=== PATIENT | male | born 1980 | race Caucasian/White ===

== ENCOUNTER 2022-12-29 06:53 | Emergency (ER) | payer OTHER, SELFPAY ==
[2022-12-29 06:56] VITALS: BP 116/70; PULSE 64; RESP 18; TEMP 37.2; O2SAT 100
--- NOTE | 2022-12-29 07:23 | NUR.NOTE ---
Nursing Note: Per nurse,cleaned laceration on left hand with sterile water. Patient had an approximate 1 1/2 laceration to the palm of his left hand.
--- NOTE | 2022-12-29 08:14 | ED.GENADUL_ITS ---
Discharge Plan Disposition Patient Disposition: Home Condition: Good Discharge Details Clinical Impression: Laceration of hand, left Primary Care Provider: None,None ED Provider: Bekah Mosley Home Meds and New Rx's Prescriptions: No Action No Known Home Meds Discharge Instructions Instructions: Laceration (ED) Additional Instructions: Stitches should be removed in 7 days; this can be done at your primary care office, urgent care, or here in the ED. Seek medical attention if your wound becomes hot, you have worsening pain, there is thick green or white discharge from the wound, you have weakness or numbness in your hand or fingers, or if you have any other concerns. Discharge Data Discharge Date/Time-TO BE ENTERED AT DEPARTURE: 12/29/22 08:43 Medical Decision Making Previously healthy 42yo male presenting with left hand laceration. Attempted to catch slipping metal sheet at ~0600 this morning. UTD on tetanus. Vital signs reassuring, shallow 3.5cm hemostatic laceration on palm of left hand on exam. No indication of neurovascular, muscle, or tendon involvement, no foreign bodies, appears clean and not grossly contaminated. Would not give prophylactic antibiotics. Thoroughly irrigated and repaired. Educated regarding s/s of infection. Discharged home; discharge instructions including return precautions were reviewed with patient who verablized understanding. Alll questions were answered and they are in full agreement with the plan. HPI General Mode of arrival: ambulatory . Date/Time Provider Initiated Documentation: 12/29/22 06:59 . Limitations to Documentation: no limitations . Information obtained by: patient . HPI Narrative: Previously healthy 42yo male presenting with left hand laceration. Was loading metal sheeting at around 0600 when it slipped, he grabbed it and cut his hand. Reports last tetanus was 1 year ago. No numbness, tingling, or weakness in his hand. Denies any other injuries. Was in his usual state of health this morning prior to this event. Related Data Home Medications Medication Instructions Recorded Confirmed Unknown [No Known Home Meds] 12/29/22 12/29/22 Allergies Allergy/AdvReac Type Severity Reaction Status Date / Time Penicillins Allergy Other (See Unverified 12/29/22 06:59 Comment) General Stated Complaint: Laceration KATERINA: 4 Review of Systems Narrative: see HPI PFSH All Active Problems (Updated 12/29/22 @ 08:18 by Bekah Mosley MD) Laceration of hand, left (Acute) Social History Smoking/Tobacco Use Status: Never Smoking risk assessment performed?: Yes Alcohol Intake: current Alcohol Intake frequency: a few times a week Drug use: Never Substance use type: does not use Housing: house Do you feel safe at home: Yes Do you feel safe in your relationship?: Yes Exam Narrative Exam Narrative: General: Alert, well appearing, well nourished, in no acute distress. Head: Normocephalic, atraumatic Neck: Trachea midline, Neck supple. Resp: No respiratory distress. Abd: Non-distended Neurologic: GCS 15. Moves all extremities freely against gravity Extremities: Left hand with 3.5cm shallow hemostatic laceration to medial palm below 4th & 5th digits. No sign of foreign body or deep structure involvement. Flexion, extension, abduction, and adduction intact at all digits with full strength. Sensation intact throughout including both ulnar and median distributions. Normally capillary refill. Course Vital Signs Vital signs: Vital Signs Temperature 37.2 C 12/29/22 06:56 Pulse 64 12/29/22 06:56 Respiratory Rate 18 12/29/22 06:56 Blood Pressure 116/70 12/29/22 06:56 Pulse Oximetry 100 12/29/22 06:56 Temperature 37.2 C 12/29/22 06:56 Temperature Source Temporal Artery Scan 12/29/22 06:56 Pulse 64 12/29/22 06:56 Respiratory Rate 18 12/29/22 06:56 Respiratory Effort Normal, Non-Labored 12/29/22 07:00 Blood Pressure 116/70 12/29/22 06:56 Blood Pressure Position Sitting 12/29/22 06:56 Pulse Oximetry 100 12/29/22 06:56 Oxygen Delivery Method Room Air 12/29/22 06:56 Oxygen Flow Rate 0 12/29/22 06:56 Procedures Laceration Laceration 1: Site: hand Side (If applicable): left Size (cm): 3.5 Description: linear Depth: simple, single layer Local Anesthetic: Lidocaine 2% Amount of anesthesia used (mL): 3 Pre-repair: wound explored, irrigated extensively and deep structures intact Skin layer closed with: nylon Size (cm): 3-0 Number of sutures: 5 Technique: simple, interrupted PAWSS Have you Been Recently Intoxicated or Drunk Within the Last 30 days?: No Have you Ever Experienced Previous Episodes of Alcohol Withdrawal?: No Have you ever Experienced Withdrawal Seizures?: No Have you ever Experienced Delirium Tremens(DT)s?: No Have you ever undergone Alcohol Rehabilitation Treatment (i.e, inpt ot outpatient treatment programs)?: No Have you ever Experienced Blackouts?: No Have you ever Combined Alcohol with other Downers within the last 90 days?: No Have you ever Combined Alcohol with any other Substance of Abuse during the last 90 days?: No Positive Blood Alcohol level on Presentation? [PCS.BAL]: No Evidence of Increased Autonomic Activity (i.e. HR>120, tremor, sweating, agitation, nausea)?: No Result: 0
[2022-12-29] MEDS: Lidocaine 2% Multi-Dose 50 ML VIAL (08:24)
[2022-12-29 08:25] VITALS: BP 116/70; PULSE 64; RESP 18; TEMP 37.2; O2SAT 100
== END 2022-12-29 08:43 | disposition home or self-care (01) ==
PROVIDERS: Emergency Provider Student in an Organized Health Care Education/Training Program
DX: S61.412A Laceration without foreign body of left hand, initial encounter (principal); W26.8XXA Contact with other sharp object(s), not elsewhere classified, initial encounter
CPT/HCPCS: 12002

== ENCOUNTER 2023-10-05 16:43 | Emergency (ER) | payer SELFPAY ==
[2023-10-05 16:46] VITALS: BP 130/52; PULSE 74; RESP 13; TEMP 37.3; O2SAT 98
--- NOTE | 2023-10-05 17:23 | ED.GENADUL_ITS ---
Discharge Plan Disposition Patient Disposition: Home Condition: Good Discharge Details Clinical Impression: Spasm of muscle of lower back Primary Care Provider: None,None ED Provider: Heath Lopez Meds and New Rx's Prescriptions: New orphenadrine citrate 100 mg tablet extended release 100 mg PO BID Qty: 10 0RF ibuprofen 600 mg tablet 600 mg PO TID Qty: 15 0RF Discharge Instructions Instructions: Muscle Spasm (ED) Additional Instructions: You were seen in the ED for low back pain and spasm related to lifting injury yesterday. It would likely take a few days to resolve. Activity as tolerated but no lifting, yard work, etc. over the weekend. Gentle stretching and massage, heat will help. Prescriptions for ibuprofen and orphenadrine and muscle relaxer have been sent to pharmacy. I have asked our field nurse case manager to work on helping you establish primary care with a local physician. If you develop any significantly worsening pain, bladder or bowel dysfunction, numbness or weakness you should return to the ED. HPI General Mode of arrival: ambulatory . Date/Time Provider Initiated Documentation: 10/05/23 17:22 . Limitations to Documentation: no limitations . Information obtained by: patient . HPI Narrative: Patient presenting to ED with lower back pain mostly on the right side after lif ting packages singles up and over his head onto scaffolding. This occurred yesterday. He has had continued pain and did not go to work today. He has taken ibuprofen and acetaminophen. Denies any abdominal pain, bladder or bowel problems, numbness, weakness. Pain is worse with movement or trying to stand up straight. Related Data Home Medications Medication Instructions Recorded Confirmed ibuprofen 600 mg tablet 600 mg PO TID #15 tabs 10/05/23 orphenadrine citrate 100 mg 100 mg PO BID #10 tabs 10/05/23 tablet,extended release Previous Rx's Medication Instructions Recorded ibuprofen 600 mg tablet 600 mg PO TID #15 tabs 10/05/23 orphenadrine citrate 100 mg 100 mg PO BID #10 tabs 10/05/23 tablet,extended release Allergies Allergy/AdvReac Type Severity Reaction Status Date / Time Penicillins Allergy Other (See Unverified 10/05/23 16:50 Comment) General Stated Complaint: Nk/Back Pain KATERINA: 4 Review of Systems Narrative: Per HPI Exam Narrative Exam Narrative: Const: WDWN male in NAD. VS per triage. HEENT: NC/AT. Normal facial exam. Eyes: Normal conjunctiva and sclera. Neck: Supple. Trachea midline. Lungs: Normal respiratory effort. Back: No spinal tenderness. Right low back spasm and mild tenderness. Neuro: A+O x 3. Normal speech, mentation, gait. Cranial nerves II - XII grossly intact. No gross motor or sensory deficit. Ext: No C/C/E. Course Vital Signs Vital signs: Vital Signs Temperature 99.1 F 10/05/23 16:46 Pulse 74 10/05/23 16:46 Respiratory Rate 13 10/05/23 16:46 Blood Pressure 130/52 L 10/05/23 16:46 Pulse Oximetry 98 10/05/23 16:46 Temperature 99.1 F 10/05/23 16:46 Temperature Source Skin 10/05/23 16:46 Pulse 74 10/05/23 16:46 Respiratory Rate 13 10/05/23 16:46 Blood Pressure 130/52 L 10/05/23 16:46 Blood Pressure Position Sitting 10/05/23 16:46 Pulse Oximetry 98 10/05/23 16:46 Oxygen Delivery Method Room Air 10/05/23 16:46 Oxygen Flow Rate 0 10/05/23 16:46 Pain Level 9 10/05/23 16:46 Comment While moving 10/05/23 16:46 Medical Decision Making Patient presenting with right lower back pain that appears to be related to muscle spasm and injury from lifting yesterday. He has no spinal tenderness, normal neurologic exam, no concerning signs or symptoms to suggest cauda equina. Should improve with time, heat. He is given ketorolac and orphenadrine IM here for relief. Prescriptions for ibuprofen and orphenadrine sent to pharmacy. He does not have primary care so we will have care management reach out to him and help establish care with a local primary care physician. Return precautions provided. [facility] All Active Problems Spasm of muscle of lower back (Acute) Medical History No significant past medical history Surgical History No significant past surgical history Social History Smoking/Tobacco Use Status: Never Smoking risk assessment performed?: Yes Alcohol Intake: current Alcohol Intake frequency: a few times a week Drug use: Never Substance use type: does not use Housing: house Do you feel safe at home: Yes Do you feel safe in your relationship?: Yes
--- NOTE | 2023-10-05 17:32 | NUR.NOTE ---
Referral given to Care Managers to help patient obtain a Primary Care Provider as available to establish care.
[2023-10-05] MEDS: Ketorolac 30 MG/ML VIAL IM (17:40)
[2023-10-05] MEDS: Orphenadrine 60 MG/2 ML VIAL IM (17:40)
== END 2023-10-05 17:52 | disposition home or self-care (01) ==
PROVIDERS: Emergency Provider Emergency Medicine
DX: M62.830 Muscle spasm of back (principal); M54.50 Low back pain, unspecified
CPT/HCPCS: 96372; 99283; J2360; J1885

== ENCOUNTER 2024-09-24 16:30 | Emergency (ER) | payer SELFPAY ==
[2024-09-24 16:33] VITALS: BP 120/70; PULSE 66; RESP 20; TEMP 36.4; O2SAT 99
[2024-09-24 16:35] VITALS: BP 120/70; PULSE 66; RESP 20; TEMP 36.4; O2SAT 99
--- NOTE | 2024-09-24 16:44 | ED.GENADUL_ITS ---
Discharge Plan Disposition Patient Disposition: Home Condition: Stable Discharge Details Clinical Impression: Dental abscess Primary Care Provider: None,None ED Provider: Brea Iverson Home Meds and New Rx's Prescriptions: New clindamycin HCl 300 mg capsule 300 mg PO Q6H 7 Days Qty: 28 0RF No Action orphenadrine citrate 100 mg tablet extended release 100 mg PO BID Qty: 10 0RF ibuprofen 600 mg tablet 600 mg PO TID Qty: 15 0RF Discharge Instructions Instructions: Dental Pain ED, Tooth Abscess ED Additional Instructions: Take all antibiotics. Take Tylenol and/or Motrin for pain. Follow-up with dentist. Discharge Data Discharge Physician: Brea Iverson [facility] General Date/Time Provider Initiated Documentation: 09/24/24 16:36 . HPI Narrative: 44-year-old male presents with right upper dental pain. Patient states that pain started 2 days ago. There is some swelling above a broken tooth. Denies any fevers or chills. No nausea or vomiting. No difficulty swallowing. He is not currently on antibiotics. He does have an allergy to penicillins. Related Data Home Medications ?Medication ?Instructions ?Recorded ?Confirmed ibuprofen 600 mg tablet 600 mg PO TID #15 tabs 10/05/23 09/24/24 orphenadrine citrate 100 mg 100 mg PO BID #10 tabs 10/05/23 09/24/24 tablet,extended release clindamycin HCl 300 mg capsule 300 mg PO Q6H 7 days #28 caps 09/24/24 Previous Rx's ?Medication ?Instructions ?Recorded ibuprofen 600 mg tablet 600 mg PO TID #15 tabs 10/05/23 orphenadrine citrate 100 mg 100 mg PO BID #10 tabs 10/05/23 tablet,extended release clindamycin HCl 300 mg capsule 300 mg PO Q6H 7 days #28 caps 09/24/24 Allergies Allergy/AdvReac Type Severity Reaction Status Date / Time Penicillins Allergy Other (See Unverified 09/24/24 16:37 Comment) General Stated Complaint: DentalOral KATERINA: 4 Review of Systems Narrative: Remainder of review of systems otherwise negative except for as noted in the HPI x 5. Exam Narrative Exam Narrative: General: non-toxic, no respiratory distress, comfortable HEENT: normocephalic, atraumatic, lids and lashes normal, PERRL, EOMI, anicteric sclera, no conjunctival injection, moist mucous membranes, no erythema, tenderness to palpation over right upper dentition above broken tooth, #5, no palpable area of fluctuance, no visible abscess, no hoarseness, stridor or drooling, no trismus. Patient is maintaining own secretions just fine. Uvula is midline, no peritonsilar abscess. Musculoskeletal: full range of motion of arms and legs, no tenderness to palpa tion. no clubbing, cyanosis, or edema Neurologic: appropriate for age, strength normal Psych: alert and oriented Skin: no petechiae, no lesions, warm and dry Course Vital Signs Vital signs: Vital Signs Temperature 36.4 C 09/24/24 16:33 Pulse 66 09/24/24 16:33 Respiratory Rate 20 09/24/24 16:33 Blood Pressure 120/70 09/24/24 16:33 Pulse Oximetry 99 09/24/24 16:33 Temperature 36.4 C 09/24/24 16:35 Pulse 66 09/24/24 16:35 Respiratory Rate 20 09/24/24 16:35 Blood Pressure 120/70 09/24/24 16:35 Blood Pressure Position Sitting 09/24/24 16:35 Pulse Oximetry 99 09/24/24 16:35 Oxygen Delivery Method Room Air 09/24/24 16:35 Oxygen Flow Rate 0 09/24/24 16:35 Medical Decision Making 44-year-old male presents for evaluation of dental pain. Patient most likely has an uncomplicated dental abscess. No evidence of deep space infection. Will discharge home on antibiotics. Follow up with dentist BUDDY. Return to ED for worsening facial swelling, high fevers, difficulty swallowing, difficulty breathing. Quality:SDOH Health Related Social Needs: No Data to Display PFSH All Active Problems Dental abscess (Acute) Medical History No significant past medical history Surgical History No significant past surgical history Social History Smoking/Tobacco Use Status: Never Tobacco: How many years used: 27 Smoking risk assessment performed?: Yes Alcohol Intake: current Alcohol Intake frequency: a few times a week Drug use: Never Substance use type: does not use Housing: house Do you feel safe at home: Yes Do you feel safe in your relationship?: Yes PAWSS Have you Been Recently Intoxicated or Drunk Within the Last 30 days?: No Have you Ever Experienced Previous Episodes of Alcohol Withdrawal?: No Have you ever Experienced Withdrawal Seizures?: No Have you ever Experienced Delirium Tremens(DT)s?: No Have you ever undergone Alcohol Rehabilitation Treatment (i.e, inpt ot outpatient treatment programs)?: No Have you ever Experienced Blackouts?: No Have you ever Combined Alcohol with other Downers within the last 90 days?: No Have you ever Combined Alcohol with any other Substance of Abuse during the last 90 days?: No Positive Blood Alcohol level on Presentation? [PCS.BAL]: No Evidence of Increased Autonomic Activity (i.e. HR>120, tremor, sweating, agitation, nausea)?: No Result: 0
[2024-09-24] MEDS: Clindamycin 300 MG CAP PO (17:15)
[2024-09-24 17:16] VITALS: BP 120/70; PULSE 66; RESP 20; TEMP 36.4; O2SAT 99
== END 2024-09-24 17:16 | disposition home or self-care (01) ==
LOC: ER 16:56
PROVIDERS: Emergency Provider Emergency Medicine Emergency Medical Services
DX: K04.7 Periapical abscess without sinus (principal); S02.5XXA Fracture of tooth (traumatic), initial encounter for closed fracture; X58.XXXA Exposure to other specified factors, initial encounter
CPT/HCPCS: 99283

== ENCOUNTER 2025-02-27 07:36 | Emergency (ER) | payer OTHER, SELFPAY ==
--- NOTE | 2025-02-27 07:38 | W.ED.GENAD ---
Discharge Plan Disposition Patient Disposition: Home Discharge Details Clinical Impression: Laceration of hand, right Primary Care Provider: None,None ED Provider: Michael Nelson Home Meds and New Rx's Prescriptions: New cephalexin 500 mg capsule 500 mg PO BID Qty: 10 0RF Discharge Instructions Instructions: Laceration Repair With Stitches ED Additional Instructions: Please follow-up with your primary care provider regarding your visit to the emergency department today. Be sure to discuss results of all test performed here today to include radiology, and laboratory testing as well as results for any pending cultures. You may follow-up with any urgent care, primary care clinic or the emergency department for suture removal. I would advise doing so in the next 10 to 14 days. Please take the prescribed Keflex for antibiotic prophylaxis and monitor your wound for signs of infection to include discharge, rash, swelling, pain, or constitutional symptoms such as fever, chills, nausea or vomiting. Should your symptoms worsen, or if you develop new concerning symptoms, please return immediately emergency department for further evaluation. HPI General Date/Time Provider Initiated Documentation: 02/27/25 07:37. HPI Narrative: MDM/Narrative: [] Disposition: [] HPI: [] ROS: Negative besides as mentioned above Exam: [] Rhythm: NSR Rate: [] Remus: Normal axis Intervals: Normal intervals Other findings: No acute ST segment or T wave changes to suggest acute ischemia. Labs: [] Radiology: [] Related Data Home Medications ?Medication ?Instructions ?Recorded ?Confirmed cephalexin 500 mg capsule 500 mg PO BID #10 caps 02/27/25 Previous Rx's ?Medication ?Instructions ?Recorded cephalexin 500 mg capsule 500 mg PO BID #10 caps 02/27/25 Allergies Allergy/AdvReac Type Severity Reaction Status Date / Time Penicillins Allergy Other (See Unverified 02/27/25 07:46 Comment) General KATERINA: 4 PFSH All Active Problems (Updated 02/27/25 @ 08:13 by Michael Nelson MD) Laceration of hand, right (Acute) Medical History No significant past medical history Surgical History No significant past surgical history Social History Smoking/Tobacco Use Status: Never Tobacco: How many years used: 27 Smoking risk assessment performed?: Yes Alcohol Intake: current Alcohol Intake frequency: a few times a week Drug use: Never Substance use type: does not use Housing: house Do you feel safe at home: Yes Do you feel safe in your relationship?: Yes
[2025-02-27 07:40] VITALS: BP 123/76; PULSE 64; TEMP 36.7; O2SAT 98
[2025-02-27] MEDS: Diph,Pertuss(Acell),Tet Vac/Pf 0.5 ML SYR IM (08:22)
--- NOTE | 2025-02-27 08:40 | W.ED.GENAD ---
Discharge Plan Disposition Patient Disposition: Home Discharge Details Clinical Impression: Laceration of hand, right Primary Care Provider: None,None ED Provider: Michael Nelson Home Meds and New Rx's Prescriptions: New cephalexin 500 mg capsule 500 mg PO BID Qty: 10 0RF Discharge Instructions Instructions: Laceration Repair With Stitches ED Additional Instructions: Please follow-up with your primary care provider regarding your visit to the emergency department today. Be sure to discuss results of all test performed here today to include radiology, and laboratory testing as well as results for any pending cultures. You may follow-up with any urgent care, primary care clinic or the emergency department for suture removal. I would advise doing so in the next 10 to 14 days. Please take the prescribed Keflex for antibiotic prophylaxis and monitor your wound for signs of infection to include discharge, rash, swelling, pain, or constitutional symptoms such as fever, chills, nausea or vomiting. Should your symptoms worsen, or if you develop new concerning symptoms, please return immediately emergency department for further evaluation. HPI General Date/Time Provider Initiated Documentation: 02/27/25 07:37. HPI Narrative: MDM/Narrative: 45-year-old male who is up-to-date with tetanus vaccination, presents for evaluation of injury to right hand. Patient states that he was placing copper elinor on a truck, and struck the side of the truck and cut the patient's right first interdigital space of the hand. Denies any other injuries. Wound was washed and explored. Repaired as below. Discharged with Keflex for prophylaxis Disposition: Home Clinical impression: Right hand laceration HPI: 45-year-old male who is up-to-date with tetanus vaccination, presents for evaluation of injury to right hand. Patient states that he was placing copper elinor on a truck, and struck the side of the truck and cut the patient's right first interdigital space of the hand. Denies any other injuries. ROS: Negative besides as mentioned above Exam: Gen: A&O NAD HEENT: NCAT, EOMI, not icteric. External ears normal. No rhinorrhea. Moist mucous membranes. Neck: Supple, full range of motion, no observable masses, No meningeal sign. Lungs: No Respiratory distress. CV: RRR, no edema. Abdomen: Soft, nondistended, No rebound tenderness. MSK: No joint swelling, no redness. There is a 3 cm curvilinear laceration to the palmar aspect of the base of the right thumb, flexion extension opposition intact, sensation intact, neurovascularly intact. Skin: No rashes, petechiae, lesions. Normal color per patient. Neuro: Normal Gait, Grossly intact. Psych: Appropriate for situation. Related Data Home Medications ?Medication ?Instructions ?Recorded ?Confirmed cephalexin 500 mg capsule 500 mg PO BID #10 caps 02/27/25 Previous Rx's ?Medication ?Instructions ?Recorded cephalexin 500 mg capsule 500 mg PO BID #10 caps 02/27/25 Allergies Allergy/AdvReac Type Severity Reaction Status Date / Time Penicillins Allergy Other (See Unverified 02/27/25 07:46 Comment) General Stated Complaint: Laceration KATERINA: 4 Course Vital Signs Vital signs: Vital Signs Temperature 36.7 C 02/27/25 07:40 Pulse 64 02/27/25 07:40 Blood Pressure 123/76 02/27/25 07:40 Pulse Oximetry 98 02/27/25 07:40 Temperature 36.7 C 02/27/25 07:40 Temperature Source Oral 02/27/25 07:40 Pulse 64 02/27/25 07:40 Blood Pressure 123/76 02/27/25 07:40 Blood Pressure Position Sitting 02/27/25 07:40 Pulse Oximetry 98 02/27/25 07:40 Oxygen Delivery Method Room Air 02/27/25 07:40 Oxygen Flow Rate 0 02/27/25 07:40 Pain Level 7 02/27/25 07:40 Comment burning pain 02/27/25 07:40 Procedure Laceration Laceration 1: Date of Procedure: 02/27/25 Time of procedure: 08:45 Provider that performed the procedure: Michael Sims Time Out Performed: Yes Patient Consented: Verbally Site: hand (right) Description: linear Depth: simple, single layer Local anesthetic: Lidocaine 1% and with Epi Amount of anesthesia used (mL): 5 Skin layer closed with: other (ethilon 4-0) Suture size: 4-0 Number of sutures:: 4 Technique: simple, interrupted Complications: None PFSH All Active Problems (Updated 02/27/25 @ 08:13 by Michael Nelson MD) Laceration of hand, right (Acute) Medical History No significant past medical history Surgical History No significant past surgical history Social History Smoking/Tobacco Use Status: Never Tobacco: How many years used: 27 Smoking risk assessment performed?: Yes Alcohol Intake: current Alcohol Intake frequency: a few times a week Drug use: Never Substance use type: does not use Housing: house Do you feel safe at home: Yes Do you feel safe in your relationship?: Yes
[2025-02-27] MEDS: Lidocaine 1% Pres-Free W/EPI 1/200,000 30 ML VIAL IJ (09:16)
== END 2025-02-27 08:54 | disposition home or self-care (01) ==
LOC: ER 08:26
PROVIDERS: Emergency Provider General Practice
DX: S61.411A Laceration without foreign body of right hand, initial encounter (principal); W26.8XXA Contact with other sharp object(s), not elsewhere classified, initial encounter; Z23 Encounter for immunization; Y99.0 Civilian activity done for income or pay
CPT/HCPCS: 99283; 99284; 12002; 90471; 90715; J2004